=== PATIENT | female | born 1955 | race Caucasian/White ===

== ENCOUNTER 2016-07-14 08:39 | Emergency (ER) | payer OTHER ==
[~2016-07-14] VITALS: Ht 167.6 cm; Wt 59.0 kg
[2016-07-14] MEDS ORDERED: Morgan Lens TOPIC ONE (09:00)
--- NOTE | 2016-07-14 09:00 | Emergency Room Report ---
History of Present Illness General Chief Complaint: Eye Problems Source: Patient Present Illness HPI Patient presents with injury to the right eye Patient reports that she was painting when she had contact with paint to the right eye Patient reports that initially the eye was irrigated for about 10 minutes however at this time is again started having burning sensation Denies any visual change denies any headache Denies any rash This injury occurred approximately 745 Allergies: Coded Allergies: No Known Allergies (Unverified , 07/14/16) Patient History Past Medical History: see triage record Pertinent Family History: none Reviewed Nursing Documentation: PMH: Agreed, PSxH: Agreed Nursing Documentation-PMH Past Medical History: No Stated History Review of Systems All Other Systems: negative except mentioned in HPI Physical Exam Vital Signs Date Time Temp Pulse Resp B/P Pulse Ox O2 Delivery O2 Flow Rate FiO2 07/14/16 08:45 97.3 46 18 96/58 99 Room Air Sp02 EP Interpretation: reviewed, normal General Appearance: well appearing, no apparent distress Head: normocephalic, atraumatic Eyes: right eye other - Mild erythematous conjunctival irritation to the right eye, no obvious abrasions or ulceration, no uptake of fluorescein , bilateral eye EOMI, bilateral eye PERRL ENT: normal pharynx, no angioedema Neck: supple, thyroid normal Respiratory: lungs clear Cardiovascular #1: regular rate, rhythm Musculoskeletal: normal inspection Neurologic: alert, oriented x3, responsive Skin: no rash Lymphatic: no adenopathy Medical Decision Making Diagnostic Impression: Primary Impression: Chemical conjunctivitis ER Course Patient was able to find that the chemical that was added to the pains was sodium silicate Poison control was contacted at At this time they do recommend similar intervention as has been performed in the ER patient has continued irrigation of the eye Fluorescein stain has been performed no signs of any uptake Last Vital Signs Date Time Temp Pulse Resp B/P Pulse Ox O2 Delivery O2 Flow Rate FiO2 07/14/16 08:45 97.3 46 18 96/58 99 Room Air Status: improved Disposition: HOME, SELF-CARE Condition: Improved Scripts Gentamicin Sulfate* (GENTAMICIN SULFATE*) 3.5 Gm Oint...g. 3.5 GM OP TID for 5 Days, GM Prov: LURDES ART D.O. 07/14/16 Additional Instructions: Patient is provided with the discharge instructions notified to follow up with primary doctor in the next 2-3 days otherwise return to the er with any worsening symptoms. Please note that this report is being documented using DRAGON technology. This can lead to erroneous entry secondary to incorrect interpretation by the dictating instrument. LURDES ART D.O. Jul 14, 2016 09:00
[2016-07-14 09:10] VITALS: BP 96/58
[2016-07-14] MEDS ORDERED: Fluorescein Strips RIGHT EYE ONE (10:15)
[2016-07-14] MEDS ORDERED: GENTAMICIN SUL3.5 GM OP (10:55)
[2016-07-14 11:00] VITALS: BP 107/56
== END 2016-07-14 11:01 | disposition home or self-care (01) ==
LOC: EMR 09:01
DX: T65.6X1A Toxic effect of paints and dyes, not elsewhere classified, accidental (unintentional), initial encounter (principal); H10.211 Acute toxic conjunctivitis, right eye; Y92.69 Other specified industrial and construction area as the place of occurrence of the external cause
CPT/HCPCS: 65205; 99283